=== PATIENT | female | born 1985 | race Caucasian/White ===

== ENCOUNTER 2017-04-08 09:50 | Emergency (ER) | payer OTHER ==
[~2017-04-08] VITALS: Ht 165.1 cm; Wt 113.4 kg
--- NOTE | ~2017-04-08 | CR72 ---
[facility] A Service of [facility] & [facility] RADIOLOGY TEXT RESULTS PATIENT: BARBARA FORD LOCATION: [facility] : 87 UNIT #: [id number] AGE: [address]: Rick Lawrence MD SEX: F ORDER DR: [id number] [facility] [address] [place], [place] [address] [id number] MR#: [id number] Acc #: [id number] NAME: BARBARA FORD : 1985 SEX: F STUDY DATE/TIME: 04/08/2017 11:27 UNIT: [facility] ROOM: STUDY DESCRIPTION: CR Chest Single View Portable Attending Physician: Rick Lawrence M.D. Ordering Physician: Rick Lawrence M.D. Primary Care Physician: Waqas Llamas Jr., D.O. MEDICAL IMAGING REPORT This report is preliminary unless electronic signature is present EXAM Chest portable 04/08/2017, 11:27 hours. HISTORY 31-year-old man with 2-week history of cough, vomiting up blood and blood in stool. COMPARISON None. FINDINGS Single portable upright view demonstrates slightly low lung volumes. The cardiac, mediastinal and hilar contours are normal. The lungs are clear of acute densities. Calcified granulomata are present bilaterally. There is no effusion or pneumothorax. No free air in the abdomen. IMPRESSION Slightly low lung volumes with benign calcified granulomatous changes. No acute cardiopulmonary findings. No free air seen in the abdomen. Dictated by... Kristel Aguilar M.D. THIS IS AN ELECTRONICALLY VERIFIED REPORT Kristel Aguilar M.D. at 04/09/2017 5:21 PM SMM/katiana TD: 04/08/2017 14:35 JOB #: [id number] MEDICAL IMAGING REPORT Page 1 of 1 COPY
--- NOTE | ~2017-04-08 | CT2 ---
[facility] A Service of [facility] RADIOLOGY TEXT RESULTS PATIENT: BARBARA FORD LOCATION: [place] : 87 UNIT #: [id number] AGE: [address]: Rick Lawrence MD SEX: F ORDER DR: [id number] [facility] [address] [place] [address] [place], [place] [address] [id number] E MR#: [id number] Acc #: [id number] NAME: BARBARA FORD : 1985 SEX: F STUDY DATE/TIME: 04/08/2017 12:31 UNIT: [facility] ROOM: STUDY DESCRIPTION: CT Abd and Pelv W Cont Attending Physician: Rick Lawrence M.D. Ordering Physician: Rick Lawrence M.D. Primary Care Physician: Waqas Llamas Jr., D.O. MEDICAL IMAGING REPORT This report is preliminary unless electronic signature is present EXAM CT abdomen and pelvis with contrast 04/08/2017 HISTORY 31-year-old female with vomiting blood. Blood in stool for 2 weeks. History of bleeding ulcers. Smoking history. COMPARISON None. TECHNIQUE 25 mm axial images from lung bases lesser trochanters after intravenous contrast administration. Sagittal and coronal reformatted images were obtained. This CT exam was performed with one or more of the following radiation dose reduction techniques: automatic exposure control, adjustment of mA and/or kV according to patient size, and iterative reconstruction. FINDINGS ABDOMEN: Lung bases are clear. Heart size is within normal limits. The liver, gallbladder, spleen, pancreas, renals and kidneys are within normal limits. Unopacified bowel appears grossly non-thickened and non-inflamed. The appendix is normal. PELVIS: Urinary bladder, uterus and rectum are normal. No pelvic free fluid or adenopathy is seen. No acute osseous abnormalities are identified. IMPRESSION 1. Normal CT abdomen and pelvis with contrast. [facility] A Service of [facility] RADIOLOGY TEXT RESULTS PATIENT: BARBARA FORD LOCATION: [facility] : 87 UNIT #: [id number] AGE: [address]: Rick Lawrence MD SEX: F ORDER DR: Dictated by... Jennifer Melvin M.D. THIS IS AN ELECTRONICALLY VERIFIED REPORT Jennifer Melvin M.D. at 04/09/2017 1:11 PM LUPIS/raciel TD: 04/08/2017 16:49 JOB #: [id number] MEDICAL IMAGING REPORT Page 1 of 1 COPY
[2017-04-08 10:37] LABS: EOSINOPHIL# 0.2 X10e3 (0-0.7); EOSINOPHIL% 4.5 % (0.0-7.0); HEMATOCRIT 43.1 % (35.0-45.0); HEMOGLOBIN 14.7 gm/dL (12.0-16.0); LYMPHOCYTE# 1.7 X10e3 (1.0-3.5); LYMPHOCYTE% 35.5 % (17.0-45.0); MEAN CELL VOLUME 92.2 FL (83-96); MEAN CORPUSCULAR HEMOGLOBIN 31.5 PG (28-34); MEAN CORPUSCULAR HGB CONC 34.2 g/dL (30-36); MEAN PLATELET VOLUME 9.1 FL (6.5-11.5); MONOCYTE# 0.4 X10e3 (0-1.0); MONOCYTE% 9.1 % (3.0-12.0); NEUTROPHIL# 2.4 X10e3 (1.5-7.1); NEUTROPHIL% 49.9 % (40-75); PLATELET COUNT 304 X10e3 (140-420); RED BLOOD COUNT 4.67 X10e (3.90-5.30); RED CELL DISTRIBUTION WIDTH 13.2 % (11.0-15.5); WHITE BLOOD COUNT 4.8 X10e3 (4.0-10.5)
[2017-04-08 10:40] LABS: DIFF IND NO
[2017-04-08 10:50] LABS: INR 0.9; PROTHROMBIN TIME (PATIENT) 10.2 SECONDS (10.0-11.7)
[2017-04-08 11:21] LABS: ALBUMIN SERUM 3.9 g/dL (3.5-5.0); BILIRUBIN, DIRECT 0.1 mg/dL (0.0-0.2); BILIRUBIN,INDIRECT 0.5 mg/dL (0.0-0.9); BILIRUBIN,TOTAL 0.6 mg/dL (0.2-2.0); CALCIUM SERUM 9.3 mg/dL (8.4-10.2); CREATININE SERUM 0.5 mg/dL (0.6-1.4); GLOM FILT RATE Estimated 129.9 mL/min (>60); POTASSIUM 4.2 mmol/L (3.5-5.1)
== END 2017-04-08 14:00 | disposition home or self-care (01) ==
LOC: CED 09:50
PROVIDERS: Emergency Medicine
DX: K64.4 Residual hemorrhoidal skin tags (principal); R11.10 Vomiting, unspecified; F17.200 Nicotine dependence, unspecified, uncomplicated; Z88.8 Allergy status to other drugs, medicaments and biological substances
CPT/HCPCS: 36415; 71010; 74177; 80048; 80076; 83690; 84703; 85025; 85610; 85730; 96374; 96375; 99284; C9113; J2405; Q9967